=== PATIENT | male | born 1975 | race African-American/Black ===

== ENCOUNTER 2018-01-07 20:19 | Emergency (ER) | payer OTHER ==
[~2018-01-07] VITALS: Ht 175.3 cm; Wt 77.2 kg
[2018-01-07] MEDS ORDERED: PEN-VEE K,VEET500 MG PO (21:23)
[2018-01-07] MEDS ORDERED: NORCO 5/3251 TABLET PO (21:23)
[2018-01-07 21:41] VITALS: BP 127/80
== END 2018-01-07 21:42 | disposition home or self-care (01) ==
LOC: EME 20:19
DX: K08.89 Other specified disorders of teeth and supporting structures (principal); F17.200 Nicotine dependence, unspecified, uncomplicated
CPT/HCPCS: 99281; 99283